=== PATIENT | male | born 1980 | race African-American/Black ===

== ENCOUNTER 2018-11-30 15:59 | Emergency (ER) | payer OTHER ==
[~2018-11-30] VITALS: Ht 195.6 cm; Wt 124.8 kg
[2018-11-30 15:59] VITALS: BP 141/107
[2018-11-30] MEDS ORDERED: ACETAMINOPHEN 500 MG TABLET PO ONE (17:00)
--- NOTE | 2018-11-30 17:40 | RAD ---
Right upper extremity venous doppler ultrasound History: Right arm swelling Comparison: None Findings: Multiple grayscale, color, and duplex spectral analysis sonographic images were acquired of the right upper extremity veins to evaluate for the presence of DVT. Interrogated right upper extremity veins are patent with normal color flow and phasicity. Impression: 1. No deep venous thrombosis is demonstrated of the interrogated right upper extremity veins. Electronically signed by: Josue Flores MD (11/30/2018 5:35 PM) [id number]
--- NOTE | 2018-11-30 18:29 | RAD ---
Examination: CT LOWER EXTREMITY WO LEFT History: AVN LT HIP, PAINFUL AMBULATION. NO KNOWN INJURY Comparison/Correlation: None Findings: Axial images of the left hip were obtained without contrast. Sagittal and coronal reformatted images were provided. The topogram demonstrates subchondral degenerative cystic involvement of the lateral aspect of the acetabular roof bilaterally. Surgical clip is noted overlying the pelvis on the topogram. Hip joint spaces are symmetric. No acute fracture or bony destructive finding. The left femoral head contour is unremarkable. Small osteochondral lesion involving the femoral head measuring up to 0.6 cm transverse by 1.1 cm anteroposterior best seen on coronal image 19 and sagittal image 27 is identified. Soft tissues about the hip are unremarkable. Impression: Osteochondral lesion involving the left femoral head is present. This likely represents degenerative change considering the subchondral cystic involvement of the lateral aspect of the acetabulum. Consider further evaluation with MRI if able for more definitive assessment of avascular necrosis if clinically warranted. No fracture or bony destruction. Femoral head contour is unremarkable. Electronically signed by: Micheal Smith MD (11/30/2018 6:24 PM) [facility]
[2018-11-30] MEDS ORDERED: HYDR-2765 PO (18:55)
--- NOTE | 2018-11-30 18:55 | PHYS DOC ---
Adult General Chief Complaint Chief Complaint: HAND PROBLEM HPI HPI Patient is a 38 year old F who presents with right arm swelling and left hip pain that started several hours prior to arrival. He had no provoking injury. He has a history of sickle cell. He has no history of clot. The swelling in his right hand is preventing him from having full range of motion of that hand. He has no other associated symptoms at this time. He has no known exacerbating or relieving factors. Review of Systems Review of Systems Constitutional: Denies fever or chills [] Eyes: Denies change in visual acuity, redness, or eye pain [] HENT: Denies nasal congestion or sore throat [] Respiratory: Denies cough or shortness of breath [] Cardiovascular: No additional information not addressed in HPI [] GI: Denies abdominal pain, nausea, vomiting, bloody stools or diarrhea [] : Denies dysuria or hematuria [] Musculoskeletal: Denies back pain Integument: Negative except history of present illness Neurologic: Denies headache, focal weakness or sensory changes [] Endocrine: Denies polyuria or polydipsia [] All other systems were reviewed and found to be within normal limits, except as documented in this note. Family History Family History No Pertinent family medical history was reported Current Medications Current Medications Current Medications Medications (Trade) Dose Ordered [facility] Start Time Stop Time Status Last Admin Dose Admin Acetaminophen (Tylenol) 1,000 mg 1X ONCE 11/30/18 17:00 11/30/18 17:07 DC 11/30/18 17:01 1,000 MG Allergies Allergies Allergies Coded Allergies Type Severity Reaction Last Updated Verified No Known Drug Allergies 11/30/18 No Physical Exam Physical Exam Constitutional: Well developed, well nourished, no acute distress, non-toxic appearance. [] HENT: Normocephalic, atraumatic, bilateral external ears normal, oropharynx moist, no oral exudates, nose normal. [] Eyes:, EOMI, conjunctiva normal, no discharge. [] Neck: Normal range of motion, no tenderness, supple, no stridor. [] Cardiovascular:Heart rate regular rhythm, Lungs & Thorax: Bilateral breath sounds clear to auscultation [] Abdomen: Bowel sounds normal, soft, no tenderness, no masses, no pulsatile masses. [] Skin: Warm, dry, no erythema, no rash. [] Extremities: No tenderness, no cyanosis, no clubbing, ROM intact, moderate edema of the right upper extremity including the hand with limited range of motion of the hand. Pain with range of motion of the left hip Neurologic: Alert and oriented X 3, normal motor function, normal sensory function, no focal deficits noted. [] Psychologic: Affect normal, judgement normal, mood normal. [] Current Patient Data Vital Signs Normal vital signs. Please review nursing documentation for specifics EKG EKG [] Radiology/Procedures Radiology/Procedures The Right Upper Extremity Revealed No DVT CT scan of the left lower extremity revealed concern for AVN. Further evaluation with MRI was recommended. This was discussed with [place]. Transfer to [facility] for further evaluation and management was recommended. Risk of and permanent disability was discussed. Verbal understanding was expressed and transfer was declined. I'll further management was declined Course & Med Decision Making Course & Med Decision Making Pertinent Labs and Imaging studies reviewed. (See chart for details) [] Dragon Disclaimer Dragon Disclaimer This electronic medical record was generated, in whole or in part, using a voice recognition dictation system. Departure Departure: Impression: Primary Impression: Swelling of right upper extremity Additional Impression: Left hip pain Disposition: AGAINST MEDICAL ADVICE Condition: GUARDED Referrals: DAMARIS LESLIE MD (PCP) Scripts Hydrocodone Bit/Acetaminophen (HYDROCODONE-APAP 7.5-325 ) 1 Each Tablet 1 TAB PO PRN Q6HRS PRN for PAIN for 3 Days, #12 TAB 0 Refills Prov: ELTON JUNIOR MD 11/30/18 Problem Qualifiers ELTON JUNIOR MD Nov 30, 2018 18:55
== END 2018-11-30 18:58 | disposition left against medical advice (07) ==
LOC: ER 15:59
DX: R22.31 Localized swelling, mass and lump, right upper limb (principal); M25.552 Pain in left hip
CPT/HCPCS: 73700; 93971; 99284-25